=== PATIENT | male | born 1965 | race Caucasian/White ===

== ENCOUNTER → 2020-12-20 13:05 | Outpatient (CLI) | payer OTHER, SELFPAY ==
--- NOTE | ~2020-12-20 | CT_ITS ---
EXAMINATION: CT abdomen pelvis w con DATE: 12/20/2020 13:38 INDICATION: Generalized abdominal pain, indigestion. TECHNIQUE: Computed tomography (CT) of the abdomen and pelvis was performed with 100 cc Omnipaque 350 intravenous contrast. Automated exposure control and iterative reconstruction technique were employe d. Exam dose: 883.05 mGy-cm total exam DLP. COMPARISON: None. FINDINGS: There is bilateral lower lobe dependent atelectasis. Normal heart size. No pericardial or pleural effusion. The liver, gallbladder, bile ducts, spleen, pancreas, pancreatic duct and adrenal glands appear octavio l. No renal mass lesion. No urinary tract calculus or hydroureteronephrosis. The urinary bladder is u nremarkable. Mild to moderate prostate enlargement. Bilateral fat-containing inguinal hernias Normal caliber of the abdominal aorta. No intraperitoneal or retroperitoneal or pelvic mass lesion or adenopathy or ascites. Normal appendix. Diverticulosis of left and right colon; no CT evidence of diverticulitis. No bowel o bstruction, bowel wall thickening, pneumatosis or intraperitoneal free air. Small fat-containing umbilical hernia. Moderate degenerative changes of the thoracic and lumbar spine. No suspicious osteolytic or osteoblas tic lesions are noted. IMPRESSION: Diverticulosis of the colon; no CT evidence of diverticulitis Normal appendix Bilateral fat-containing inguinal hernias and small fat-containing umbilical hernia Reviewed, dictated and finalized at [facility]. Reviewed, dictated and finalized at [facility]. IMPRESSION: Diverticulosis of the colon; no CT evidence of diverticulitis Normal appendix Bilateral fat-containing inguinal hernias and small fat-containing umbilical he gustavo
[2020-12-20 13:27] LABS: Estimated Glomerular Filt Rate > 60
== END ==
PROVIDERS: PCP Internal Medicine; Visit Provider Internal Medicine
DX: R10.9 Unspecified abdominal pain (principal); K40.90 Unilateral inguinal hernia, without obstruction or gangrene, not specified as recurrent; K57.30 Diverticulosis of large intestine without perforation or abscess without bleeding; K42.9 Umbilical hernia without obstruction or gangrene
CPT/HCPCS: 74177; Q9967